=== PATIENT | female | born 1960 | race Caucasian/White ===

== ENCOUNTER 2016-10-22 17:57 | Emergency (ER) | payer OTHER ==
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
[2016-10-22] MEDS ORDERED: 0.9 % SODIUM CHLORIDE 500 ML IV ONE (19:22)
[2016-10-22 19:43] LABS: APPEARANCE,URINE Clear (CLEAR); COLOR,URINE Yellow (YELLOW); OCCULT BLOOD,URINE Negative (NEGATIVE); UROBILINOGEN URINE 0.2 Eu (0.2-1.0)
[2016-10-22 19:45] LABS: BASOPHILS % 0.9 (0.0-1.5); EOSINOPHILS % 1.5 % (0.0-6.8); MEAN CORPUSCULAR HEMOGLOBIN 32.8 pg (28.0-34.0); MEAN CORPUSCULAR VOLUME 98.3 fl (80.0-100.0); MONOCYTES % 7.2 % (0.0-11.0); NEUTROPHILS # 3.4 # k/uL (1.4-7.7)
[2016-10-22 20:25] LABS: eGFR (African) > 60; eGFR (Non-African) > 60
[2016-10-22] MEDS ORDERED: KETOROLAC TROMETHAMINE 30 MG/1ML VIAL IVP ONE (20:42)
[2016-10-22 22:50] VITALS: BP 154/55
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
== END 2016-10-22 21:40 | disposition home or self-care (01) ==
LOC: ED 17:57
DX: R51 Headache (principal)
CPT/HCPCS: 70450; 72125; 80053; 81002; 85025; J1885; J7060; 96361; 96374; 99283; S1016